=== PATIENT | male | born 1955 | race Caucasian/White ===

== ENCOUNTER 2020-09-22 17:18 | Emergency (ER) | payer MEDICARE, OTHER ==
[~2020-09-22 17:18] MED LIST: IBUPROFEN600 MG PO; NORFLEX 100 MG100 MG PO; PREDNISONE 50 M50 MG PO
[2020-09-22 22:25] LABS: HEMOGLOBIN 16.1 gm/dl (14.0-17.5); RED BLOOD COUNT 5.02 M/UL (4.20-5.50); WHITE BLOOD COUNT 9.1 K/UL (4.5-11.0)
[2020-09-22] MEDS ORDERED: IBUPROFEN800 MG PO (22:32)
[2020-09-22] MEDS ORDERED: CYCLOBENZAPRINE10 MG PO (22:32)
[2020-09-22 22:46] LABS: BUN/CREATININE RATIO 13 (0-10)
== END 2020-09-22 23:00 | disposition home or self-care (01) ==
LOC: ER1 17:18
PROVIDERS: Preventive Medicine Occupational Medicine
DX: M54.6 Pain in thoracic spine (principal); R07.89 Other chest pain; I25.10 Atherosclerotic heart disease of native coronary artery without angina pectoris; I10 Essential (primary) hypertension; F17.200 Nicotine dependence, unspecified, uncomplicated
CPT/HCPCS: 71045; 72128; 72131; 80053; 85025; 86140; 99284

== ENCOUNTER → 2020-11-09 | Outpatient (CLI) | payer MEDICARE, OTHER ==
[~2020-11-09] MED LIST changes: +CYCLOBENZAPRINE10 MG PO; +IBUPROFEN800 MG PO
== END ==
LOC: KOH-I 14:32
DX: Z12.2 Encounter for screening for malignant neoplasm of respiratory organs (principal)
CPT/HCPCS: 71271